=== PATIENT | female | born 1990 | race Hispanic/Latino ===

== ENCOUNTER 2018-01-17 13:35 | Emergency (ER) | payer MEDICAID ==
[2018-01-17 16:24] LABS: BASO % 0.6 % (0.0-2.0); EOS % 0.7 % (0.0-4.0); HEMOGLOBIN 12.5 g/dL (12.0-16.0); LYMPH # 2.8 K/uL (1.0-4.3); LYMPH % 44.3 % (20.0-40.0); MEAN CELL VOLUME 92.4 fl (81.0-99.0); MEAN CORPUSCULAR HEMOGLOBIN 30.8 pg (27.0-31.0); MEAN CORPUSCULAR HGB CONC 33.3 g/dL (33.0-37.0); MEAN PLATELET VOLUME 7.4 fl (7.2-11.7); MONO # 0.3 K/uL (0.0-0.8); MONO % 4.5 % (0.0-10.0); NEUT # 3.2 K/uL (1.8-7.0); NEUT % 49.9 % (50.0-75.0); RBC 4.05 Mil/uL (3.80-5.20); RED CELL DISTRIBUTION WIDTH 14.1 % (11.5-14.5); WHITE BLOOD COUNT 6.4 K/uL (4.8-10.8)
[2018-01-17 16:42] LABS: ALB/GLOB RATIO 1.3 (1.0-2.1); ALBUMIN 4.1 g/dL (3.5-5.0); ALT/SGPT 24 U/L (9-52); AST/SGOT 31 U/L (14-36); BLOOD UREA NITROGEN 7 mg/dl (7-17); CALCIUM 8.7 mg/dL (8.4-10.2); GFR NON-AFRICAN AMERICAN > 60
[2018-01-17 17:18] LABS: OPIATES, UR NEGATIVE (NEGATIVE); PHENCYCLIDINE, UR NEGATIVE (NEGATIVE)
[2018-01-17 17:21] LABS: BARBITURATES, UR NEGATIVE (NEGATIVE); BENZODIAZEPINES, UR NEGATIVE (NEGATIVE)
[2018-01-17 17:27] LABS: SQUAMOUS EPITHIAL 1 /hpf (0-5); URINE BACTERIA MOD (<OCC); URINE BILIRUBIN NEGATIVE (NEGATIVE); URINE CLARITY SLIGHTY-CLOUDY (Clear); URINE COLOR STRAW (YELLOW); URINE GLUCOSE (UA) NEG (Normal); URINE LEUKOCYTE ESTERASE NEG Leu/uL (Negative); URINE PROTEIN NEGATIVE (NEGATIVE); URINE UROBILINOGEN 0.2-1.0 mg/dL (0.2-1.0)
[2018-01-17 17:54] LABS: URINE BLOOD NEGATIVE (NEGATIVE)
--- NOTE | 2018-01-17 18:51 | ED PDOC ---
HPI: Psych/Substance Abuse Chief Complaint (Provider): Denies complaint Additional Complaint(s): 27 yo female with no medical problems presents for evaluation by EMS. Pt was found acting bizarre and walking barefoot in [place]. Pt states she lives in [place]. Pt states "It is not illegal to walk barefoot". Pt agitated but remains in bed. Pt refusing to have property sheet completed. <Jaky Shi - Last Filed: 01/17/18 19:37> <Magda Crews - Last Filed: 01/18/18 15:43> Time Seen by Provider: 01/17/18 13:40 Chief Complaint (Nursing): Psychiatric Evaluation Supervising Attending Note - Attestation: I have personally seen and examined this patient.: No I have reviewed all pertinent clinical information, including history, physical exam and plan: Yes <Magda Crews - Last Filed: 01/18/18 15:43> Past Medical History Reviewed: Historical Data, Nursing Documentation, Vital Signs Vital Signs: Last Vital Signs Temp 99.1 F 01/17/18 13:39 Pulse 126 H 01/17/18 13:39 Resp 16 01/17/18 13:39 BP 142/86 01/17/18 13:39 Pulse Ox 100 01/17/18 13:39 - Medical History PMH: No Chronic Diseases - Family History Family History: States: No Known Family Hx - Living Arrangements Living Arrangements: With Family - Social History Current smoker - smoking cessation education provided: No Alcohol: None Drugs: Denies <Jaky Shi - Last Filed: 01/17/18 19:37> Vital Signs: Last Vital Signs Temp 98.7 F 01/17/18 23:10 Pulse 82 01/17/18 23:10 Resp 18 01/17/18 23:10 BP 106/64 01/17/18 23:10 Pulse Ox 98 01/18/18 02:01 <Magda Crews - Last Filed: 01/18/18 15:43> - Allergies Allergies/Adverse Reactions: Allergies Allergy/AdvReac Type Severity Reaction Status Date / Time No Known Allergies Allergy Verified 01/17/18 13:46 Review of Systems ROS Statement: Except As Marked, All Systems Reviewed And Found Negative Constitutional: Negative for: Fever, Chills Cardiovascular: Negative for: Chest Pain, Palpitations Respiratory: Negative for: Cough, Shortness of Breath Gastrointestinal: Negative for: Nausea, Vomiting Neurological: Negative for: Weakness, Numbness Psych: Positive for: Other <Jaky Shi - Last Filed: 01/17/18 19:37> Physical Exam - Reviewed Nursing Documentation Reviewed: Yes Vital Signs Reviewed: Yes - Physical Exam Appears: Positive for: Well, Non-toxic, No Acute Distress Head Exam: Positive for: ATRAUMATIC, NORMAL INSPECTION, NORMOCEPHALIC Skin: Positive for: Normal Color, Warm, DRY Eye Exam: Positive for: Normal appearance ENT: Positive for: Normal ENT Inspection Neck: Positive for: Normal, Painless ROM Cardiovascular/Chest: Positive for: Regular Rate, Rhythm Respiratory: Positive for: Normal Breath Sounds. Negative for: Accessory Muscle Use, Respiratory Distress Back: Positive for: Normal Inspection Extremity: Positive for: Normal ROM Neurologic/Psych: Positive for: Alert, Oriented <Jaky Shi - Last Filed: 01/17/18 19:37> - Laboratory Results Result Diagrams: 01/17/18 16:10 01/17/18 16:10 - ECG O2 Sat by Pulse Oximetry: 100 <Jaky Shi - Last Filed: 01/17/18 19:37> - Laboratory Results Result Diagrams: 01/17/18 16:10 01/17/18 16:10 <Magda Crews - Last Filed: 01/18/18 15:43> Medical Decision Making Medical Decision Making: Jerrica at bedside and patient attempts to leave. PT screaming and yelling in ER. Pt seen by myself and Dr. Dooley. 4 points, ativan and Haldol given for agitation. Pt placed on 1:1. 1855 - HR 94 1935 - Pt to be evaluated by [facility] [place]. 2000 - Endorsed to Eladia Priest PA-C <Jaky Shi - Last Filed: 01/17/18 19:37> Disposition - Patient ED Disposition Is Patient to be Admitted: Transfer of Care - Disposition Disposition: Transfer of Care Disposition Time: 20:00 <Jaky Shi - Last Filed: 01/17/18 19:37> <Magda Crews - Last Filed: 01/18/18 15:43> - Clinical Impression Clinical Impression: Encounter for psychiatric assessment, Adjustment disorder - Disposition Condition: STABLE Instructions: Adjustment Disorder
[2018-01-17] MEDS ORDERED: Potassium Chloride 20 mEq ER Tab PO ONE ×2 (20:08→22:49)
[2018-01-18 00:01] VITALS: BP 106/64; PULSE 82; RESP 18; TEMP 98.7; O2SAT 98
--- NOTE | 2018-01-18 02:01 | ED PDOC ---
- Laboratory Results Result Diagrams: 01/17/18 16:10 01/17/18 16:10 - ECG O2 Sat by Pulse Oximetry: 98 - Progress ED Course And Treament: SEEN BY [facility] [place] SCREENER CLEARED FOR DISCHARGE HOME. DIAGNOSIS ADJUSTMENT DISORDER PER DR. CUETO Disposition - Clinical Impression Clinical Impression: Encounter for psychiatric assessment, Adjustment disorder - POA Present On Arrival: None - Disposition Disposition: Routine/Home Disposition Time: 02:01 Condition: STABLE Instructions: Adjustment Disorder
== END 2018-01-18 03:18 | disposition home or self-care (01) ==
LOC: H.ER 13:35
DX: F43.20 Adjustment disorder, unspecified (principal)
CPT/HCPCS: 80053; 81003; 81025; 85025; 96372; 99285; G0480; J1630; J2060

== ENCOUNTER 2018-07-31 20:20 | Emergency (ER) | payer MEDICAID, OTHER ==
[2018-07-31 20:31] VITALS: BP 125/70; TEMP 98.1; O2SAT 100
--- NOTE | 2018-07-31 22:14 | ED PDOC ---
HPI: Psych/Substance Abuse Time Seen by Provider: 07/31/18 20:46 Chief Complaint (Nursing): Substance Abuse Chief Complaint (Provider): Substance Abuse History Per: Patient History/Exam Limitations: no limitations Onset/Duration Of Symptoms: Mins (just prior to arrival) Current Symptoms Are (Timing): Gone Now Additional Complaint(s): 27 year old female presents to the ED via EMS for substance abuse. Patient states that she was in the [place] and took two hits of her friend's marijuana which made her develop palpitations and anxiety, prompting the call to EMS. Per EMS, patient initially looked very pale. Currently, patient states all of her symptoms have since resolved and feels "totally fine." Additionally denies suicidal ideation and homicidal ideation. PMD: none provided Past Medical History Reviewed: Historical Data, Nursing Documentation, Vital Signs Vital Signs: Last Vital Signs Temp 98.1 F 07/31/18 20:26 Pulse 111 H 07/31/18 20:26 Resp 18 07/31/18 20:26 BP 125/70 07/31/18 20:26 Pulse Ox 100 07/31/18 20:26 - Medical History PMH: No Chronic Diseases Denies: Diabetes, Hepatitis, HIV, HTN, Seizures, Sexually Transmitted Disease - Surgical History Surgical History: No Surg Hx - Family History Family History: States: Unknown Family Hx - Living Arrangements Living Arrangements: Other (half-way) - Social History Drugs: Other (hx substance abuse) - Allergies Allergies/Adverse Reactions: Allergies Allergy/AdvReac Type Severity Reaction Status Date / Time No Known Allergies Allergy Verified 01/17/18 13:46 Review of Systems ROS Statement: Except As Marked, All Systems Reviewed And Found Negative Cardiovascular: Positive for: Palpitations (but since resolved) Psych: Positive for: Anxiety (but since resolved). Negative for: Suicidal ideation (or homicidal ideation) Physical Exam - Reviewed Nursing Documentation Reviewed: Yes Vital Signs Reviewed: Yes - Physical Exam Appears: Positive for: Well, Non-toxic, No Acute Distress Head Exam: Positive for: ATRAUMATIC, NORMAL INSPECTION, NORMOCEPHALIC Skin: Positive for: Normal Color, Warm. Negative for: Pallor Eye Exam: Positive for: EOMI, Normal appearance, PERRL ENT: Positive for: Normal ENT Inspection Neck: Positive for: Normal, Painless ROM, Supple Cardiovascular/Chest: Positive for: Regular Rate, Rhythm Respiratory: Positive for: Normal Breath Sounds. Negative for: Respiratory Distress Gastrointestinal/Abdominal: Positive for: Normal Exam, Soft. Negative for: Tenderness Back: Positive for: Normal Inspection Extremity: Positive for: Normal ROM (all extremities) Neurological/Psych: Positive for: Awake, Alert, Oriented (x3), Gait (steady, unassisted). Negative for: Motor/Sensory Deficits - ECG O2 Sat by Pulse Oximetry: 100 (RA) Pulse Ox Interpretation: Normal Medical Decision Making Medical Decision Making: A/P: Patient experiencing side effects of marijuana abuse with resolved symptoms --Heart rate currently 99bpm, stable for discharge --Advised patient to abstain from substance use in the future --------- -------- Scribe Attestation: Documented by Luz Youngblood, acting as a scribe for Pollo Alvares MD. Provider Scribe Attestation: All medical record entries made by the Scribe were at my direction and personally dictated by me. I have reviewed the chart and agree that the record accurately reflects my personal performance of the history, physical exam, medical decision making, and the department course for this patient. I have also personally directed, reviewed, and agree with the discharge instructions and disposition. Disposition - Clinical Impression Clinical Impression: Substance abuse - Disposition Referrals: [facility] [Outside] [facility] [place] [Outside] Disposition: Routine/Home Disposition Time: 22:00 Condition: IMPROVED Instructions: Marijuana Use and Addiction Forms: [facility] (Arabic)
[2018-08-01 04:28] VITALS: PULSE 90; RESP 17
== END 2018-07-31 21:46 | disposition home or self-care (01) ==
LOC: H.ER 20:20
DX: F19.10 Other psychoactive substance abuse, uncomplicated (principal); F41.9 Anxiety disorder, unspecified